=== PATIENT | female | born 1965 | race American Indian/Alaskan Native ===

== ENCOUNTER 2016-04-28 15:08 | Outpatient (CLI) | payer OTHER | END 2016-04-28 15:09 | disposition home or self-care (01) | LOC: LABHHL 15:08 → LAB 15:08 | PROVIDERS: ATTEND Surgery | DX: N60.01 Solitary cyst of right breast (principal) | CPT/HCPCS: 88112 ==

== ENCOUNTER 2018-04-13 10:17 | Emergency (ER) | payer OTHER, SELFPAY ==
--- NOTE | 2018-04-13 11:46 | Emergency Department Report ---
ED General Adult HPI - General Chief complaint: Medical Clearance Stated complaint: SENT BY /TO CHECK LUNGS Time Seen by Provider: 04/13/18 11:29 Source: patient, RN notes reviewed, old records reviewed Mode of arrival: Ambulatory Limitations: No Limitations - History of Present Illness Initial comments: This is a 53-year-old female. The patient has a medical history of cigar consumption. The patient is sent to the emergency room by her anesthesiologist, Dr. Yeung, for "medical clearance." Dr. Yeung called this provider prior to sending the patient to the emergency room. The patient is scheduled to have elective outpatient hysterectomy, and apparently has been having issues with high blood pressure, and having issues with insurance, and has been having difficulty with outpatient health maintenance. The patient has been apparently discussed with case management, who offered the option of evaluation in the emergency room. The phone conversation with that Dr. Yeung had with this provider indicated that she did not feel that the patient was acutely medically decompensated. From a symptom perspective, the patient has intermittent cough, but does not feel short of breath, denies headache, neck pain, chest pain, has mild lower abdominal discomfort which is chronic, nothing new, worsening or different, but denies other symptoms. She had outpatient screening laboratory studies sent earlier on today, which were essentially unremarkable. The patient has not followed up with a primary care doctor in a few years. She does not have a formal diagnosis of hypertension that she is aware of. Severity scale (0 -10): 0 Associated Symptoms: cough - Related Data Home Medications Medication Instructions Recorded Confirmed Last Taken No Known Home Medications [No 04/12/18 04/12/18 Unknown Reported Home Medications] Allergies Allergy/AdvReac Type Severity Reaction Status Date / Time No Known Allergies Allergy Unverified 04/12/18 16:47 ED Review of Systems ROS: Stated complaint: SENT BY /TO CHECK LUNGS Other details as noted in HPI Constitutional: denies: fever Eyes: denies: eye discharge ENT: congestion Respiratory: cough Cardiovascular: denies: chest pain Gastrointestinal: denies: nausea, vomiting Genitourinary: denies: dysuria Musculoskeletal: denies: back pain Skin: denies: lesions Neurological: denies: weakness ED Past Medical Hx - Past Medical History Hx Hypertension: Yes (Not taking any treatment) Hx GERD: Yes Hx Arthritis: Yes (Fingers, legs, back) - Surgical History Past Surgical History?: Yes Hx Cholecystectomy: Yes Additional Surgical History: TUBAL /HTENDON SURG ON FINGER - Social History Smoking Status: Current Every Day Smoker Substance Use Type: Alcohol - Medications Home Medications: Home Medications Medication Instructions Recorded Confirmed Last Taken Type No Known Home Medications [No 04/12/18 04/12/18 Unknown History Reported Home Medications] ED Physical Exam - General Limitations: No Limitations General appearance: alert, in no apparent distress - Head Head exam: Present: atraumatic, normocephalic - Eye Eye exam: Present: normal appearance, EOMI. Absent: nystagmus - ENT ENT exam: Present: normal exam, normal orophraynx, mucous membranes moist, normal external ear exam - Neck Neck exam: Present: normal inspection, full ROM. Absent: tenderness, meningismus - Respiratory Respiratory exam: Present: normal lung sounds bilaterally. Absent: respiratory distress - Cardiovascular Cardiovascular Exam: Present: regular rate, normal rhythm, normal heart sounds. Absent: bradycardia, tachycardia, irregular rhythm, systolic murmur, diastolic murmur, rubs, gallop - GI/Abdominal GI/Abdominal exam: Present: soft. Absent: distended, tenderness, guarding, rebound, rigid, pulsatile mass - Extremities Exam Extremities exam: Present: normal inspection, full ROM, other (2+ pulses noted in the bilateral upper, lower extremities. Compartments soft. No long bony tenderness. The pelvis is stable.). Absent: joint swelling, calf tenderness - Back Exam Back exam: Present: normal inspection, full ROM. Absent: tenderness, CVA tenderness (R), paraspinal tenderness, vertebral tenderness - Neurological Exam Neurological exam: Present: alert, oriented X3, CN II-XII intact, normal gait, other (Extraocular movements intact. Tongue midline. No facial droop. Facial sensation intact to light touch in the V1, V2, V3 distribution bilaterally. 5 and 5 strength in 4 extremities.. Sensation is intact to light touch in 4 extremities.). Absent: motor sensory deficit - Psychiatric Psychiatric exam: Present: normal affect, normal mood - Skin Skin exam: Present: warm, dry, intact, normal color. Absent: rash ED Course Vital Signs 04/13/18 10:48 Temperature 97.7 F Pulse Rate 67 Respiratory 18 Rate Blood Pressure 190/82 O2 Sat by Pulse 99 Oximetry ED Medical Decision Making - Lab Data Vital Signs 04/13/18 10:48 Temperature 97.7 F Pulse Rate 67 Respiratory 18 Rate Blood Pressure 190/82 O2 Sat by Pulse 99 Oximetry Laboratory studies are reviewed. - Medical Decision Making Differential diagnosis, including without limited to: General medical evaluation, medical screening examination, history of tobacco consumption, elevated blood pressure Assessment and plan: 53-year-old female with probable diagnosis of hypertension, who does not have an acute medical decompensation. The patient is afebrile, with reassuring vital signs, and in no acute distress. The patient is saturating at 100% on room air, with a resting heart rate in the 60s. Lung sounds clear to auscultation, and on my examination, does not have any significant cardiac findings, and has clear lungs to auscultation. X-ray of the chest is unremarkable. I had an extensive discussion with the patient regarding need for outpatient follow-up. The patient was counseled to lose weight, discontinue cigar and tobacco consumption, to participate in physical activities as tolerated, and to modify diet and lifestyle. The patient was counseled that the first line treatment for obesity, elevated blood pressure, hypertension specifically diet and left some modification, and that this typically requires 2-3 months. The patient verbalized understanding to this. The patient was also referred to the [place] [employer] webpage for information as to how to tell her and modify her diet. a case management consult was ordered, and they can follow the patient as an outpatient. This patient does not appear to have an emergent medical condition at this time, and she is medically suitable to follow-up. Her elevated blood pressure is reviewed and appreciated, please reference the [employer] clinical policy on hypertension which is not acutely decompensated. Critical care attestation.: If time is entered above; I have spent that time in minutes in the direct care of this critically ill patient, excluding procedure time. ED Disposition Clinical Impression: Encounter for medical screening examination, Elevated blood pressure reading Disposition: DC-01 TO HOME OR SELFCARE Is pt being admited?: No Does the pt Need Aspirin: No Condition: Stable Instructions: Hypertension (ED), Heart Healthy Diet (ED) Additional Instructions: As we discussed, the patient does not appear to have an emergent medical condition at this time. I recommend that the patient lose weight as tolerated, participate in physical activities as tolerated, and modified diet and decrease consumption of carbohydrates, sugars, fatty foods, and foods high in salt content. Please reference the [place] [employer] website for further recommendations The patient should follow-up with a primary care doctor within 4-6 weeks for routine health maintenance. Please note that the patient was noted to have hypertension, elevated blood pressure. This should be checked up by primary care doctor as recommended. Long-term complications of hypertension and elevated blood pressure includes stroke, heart attack, disability, paralysis, loss of quality of life. Please return to the emergency room right away with new, worsening or different symptoms. Referrals: [facility] [Provider Group] - 3-5 Days [facility] [Provider Group] - 3-5 Days
--- NOTE | 2018-04-13 12:13 | XRay Report ---
CHEST 2 VIEWS INDICATION: Cough. COMPARISON: None similar at this institution. FINDINGS: PA and lateral chest radiographs demonstrate normal cardiomediastinal silhouette. Clear lungs. Right hemidiaphragm minimally higher than the left. Right upper quadrant presumed cholecystectomy clips. CONCLUSION: No acute chest process, as described. Thank you for the opportunity to participate in this patient's care.
[2018-04-13 12:35] VITALS: BP 181/85
== END 2018-04-13 12:34 | disposition home or self-care (01) ==
LOC: ED 10:17
DX: I10 Essential (primary) hypertension (principal); K21.9 Gastro-esophageal reflux disease without esophagitis; F17.200 Nicotine dependence, unspecified, uncomplicated; M79.645 Pain in left finger(s); M79.644 Pain in right finger(s); M79.605 Pain in left leg; M79.604 Pain in right leg; M54.9 Dorsalgia, unspecified; Z90.49 Acquired absence of other specified parts of digestive tract; Z98.51 Tubal ligation status
CPT/HCPCS: 71046

== ENCOUNTER 2018-04-17 06:54 | Inpatient (IN) | payer SELFPAY ==
[2018-04-13 10:14] LABS: Basophils % (Auto) 0.3 % (0.0-1.8); Eosinophils # (Auto) 0.1 K/mm3 (0.0-0.4); Eosinophils % (Auto) 1.1 % (0.0-4.3); Hemoglobin 12.7 gm/dl (10.1-14.3); Lymphocytes # (Auto) 1.7 K/mm3 (1.2-5.4); Lymphocytes % (Auto) 30.2 % (13.4-35.0); Mean Corpuscular HGB Conc 33 % (30-34); Mean Corpuscular Volume 95 fl (79-97); Monocytes # (Auto) 0.3 K/mm3 (0.0-0.8); Monocytes % (Auto) 5.9 % (0.0-7.3); Platelet Count 223 K/mm3 (140-440); Red Blood Count 3.99 M/mm3 (3.65-5.03); Red Cell Distribution Width 14.7 % (13.2-15.2)
[2018-04-13 10:21] LABS: BUN/Creatinine Ratio 24; Blood Urea Nitrogen 12 mg/dL (7-17); Calcium 9.1 mg/dL (8.4-10.2); Hemolysis Index 8
--- NOTE | 2018-04-13 12:00 | Anesthesia Consultation ---
Anesthesia Consult and Med Hx Date of service: 04/13/18 - Airway Anesthetic Teeth Evaluation: Good ROM Head & Neck: Adequate Mental/Hyoid Distance: Adequate Mallampati Class: Class II Intubation Access Assessment: Probably Good - Pulmonary Exam CTA: Yes - Cardiac Exam Cardiac Exam: RRR - Pre-Operative Health Status ASA Pre-Surgery Classification: ASA3 Proposed Anesthetic Plan: General Nerve Block: TAP block - Pulmonary Hx Smoking: Yes (1/2 PPD x 40yrs) Hx Respiratory Symptoms: Yes (chronic productive cough) SOB: No Home Oxygen Therapy: No Hx Sleep Apnea: No - Cardiovascular System Hx Hypertension: Yes (noncompliant with antihypertensives) Hx Heart Attack/AMI: No Hx Percutaneous Transluminal Coronary Angioplasty (PTCA): No Hx Cardia Arrhythmia: No - Central Nervous System Hx Seizures: No CVA: No - Gastrointestinal Hx Gastroesophageal Reflux Disease: No - Endocrine Hx Renal Disease: No Hx Liver Disease: No Hx Insulin Dependent Diabetes: No Hx Non-Insulin Dependent Diabetes: No Hx Thyroid Disease: No - Other Systems Hx Substance Use: Yes (Prior cocaine use, clean x7yrs. Daily marijuana smoker.) Hx Obesity: No - Additional Comments Anesthesia Medical History Comments: No hx anesthetic complications. In pre- assessment, patient found to have BP 170s/60s with diffuse wheezing and course breath sounds on exam. Patient is aware of HTN diagnosis but has been noncompliant with previous treatment and does not currently follow with a PCP. Discussed with patient the anesthetic risks of GA in the context of poorly controlled HTN and possible lung disease including severe hyper/hypotension, difficulty with oxygenation/ventilation/extubation leading to prolonged intubation and ICU admission, perioperative MA, CVA, or . Patient was concerned about surgical delay since she has taken time off from 2 jobs. Discussed with case management whom recommended sending patient to ED for evaluation. Also discussed with ED clinic charge nurse and MD. Patient has opted to present to ED today. I have explained to the patient that if her blood pressure is significantly elevated DOS or lung exam is unchanged, her surgery may be postponed or canceled pending optimization of chronic conditions.
[2018-04-17] MEDS ORDERED: LACTATED RINGERS 1,000 ML IV SCH (07:14)
[2018-04-17] MEDS ORDERED: SUBLIMAZE IV NR (07:28)
[2018-04-17] MEDS ORDERED: PROVENTIL IH NR (07:30)
--- NOTE | 2018-04-17 07:50 | Anesthesia Day of Surgery ---
Anesthesia Day of Surgery - Day of Surgery Patient Examined: Yes Patient H&P Reviewed: Yes Patient is NPO: Yes
--- NOTE | 2018-04-17 07:53 | History and Physical Report ---
History of Present Illness Date of examination: 04/17/18 Date of admission: 04/17/18 06:54 Chief complaint: Symptomatic uterine fibroids History of present illness: Pt is a 53yo BF LMP 2 years ago presents for surgical evaluation and treatment of symptomatic uterine fibroids. A pelvic ultrasound showed the uterus to measure 15 x 12 x 9 cm with 5 fibroids and endometrial biopsy was benign showing weakly proliferative endometrium with endometrial polyp. She now presents for a total abdominal hysterectomy with bilateral salpingo- oophorectomy. Past History Past Medical History: no pertinent history Past Surgical History: no surgical history [facility] History: fibroids Social history: no significant social history Medications and Allergies Allergies Allergy/AdvReac Type Severity Reaction Status Date / Time No Known Allergies Allergy Unverified 04/12/18 16:47 Home Medications Medication Instructions Recorded Confirmed Last Taken Type No Known Home Medications [No 04/12/18 04/12/18 Unknown History Reported Home Medications] Active Meds: Active Medications Albuterol (Proventil) 2.5 mg IH PREOP NR Stop: 04/17/18 16:00 Celecoxib (Celebrex) 200 mg PO PREOP NR Stop: 04/17/18 16:00 Fentanyl (Sublimaze) 100 mcg IV ONCE NR Stop: 04/17/18 16:00 Gabapentin (Neurontin) 300 mg PO PREOP NR Stop: 04/17/18 16:00 Lactated Ringer's (Lactated Ringers) 1,000 mls @ 100 mls/hr IV DIRECT SEVERINO Midazolam HCl (Versed) 2 mg IV PREOP NR Stop: 04/17/18 23:59 Review of Systems All systems: negative - Vital Signs Vital signs: Vital Signs Temp Pulse Resp BP Pulse Ox 98.5 F 70 20 170/70 98 04/13/18 09:30 04/13/18 09:30 04/13/18 09:30 04/13/18 09:30 04/13/18 09:30 Temp Pulse Resp BP Pulse Ox 98.5 F 70 20 170/70 98 04/13/18 09:30 04/13/18 09:30 04/13/18 09:30 04/13/18 09:30 04/13/18 09:30 - Physical Exam Breasts: Positive: deferred Cardiovascular: Regular rate Lungs: Positive: Clear to auscultation Abdomen: Positive: normal appearance Genitourinary (Female): Positive: normal external genitalia Vagina: Positive: normal moisture Uterus: Positive: enlarged Anus/Rectum: Positive: normal perianal skin Extremities: Positive: normal Results Result Diagrams: 04/13/18 09:25 04/13/18 09:25 All other labs normal. Ultrasound: report reviewed Assessment and Plan - Patient Problems (1) Uterine fibroid Onset Date: 04/17/18 Current Visit: Yes Status: Acute Qualifiers: Uterine leiomyoma location: intramural, submucous, and subserous Qualified Code(s): D25.1 - Intramural leiomyoma of uterus; D25.0 - Submucous leiomyoma of uterus; D25.2 - Subserosal leiomyoma of uterus Plan to address problem: A: Symptomatic uterine fibroids Postmenopausal bleeding P: Will admit for a Total Abdominal Hysterectomy with Bilateral Salpingo- Oophorectomy (2) Post-menopausal bleeding Onset Date: 04/17/18 Current Visit: Yes Status: Acute
[2018-04-17] MEDS ORDERED: MARCAINE 0.25% INFILTRATI ONE (07:58)
[2018-04-17] MEDS ORDERED: ANCEF/STERILE WATER 2 GM/20 ML 2 GM/20 ML SYRINGE IV SCH (08:00)
[2018-04-17] MEDS ORDERED: NEURONTIN PO NR (08:00)
[2018-04-17] MEDS: VERSED IV NR ×2 (08:18→09:15)
[2018-04-17] MEDS ORDERED: SUBLIMAZE ONE ×2 (08:44→11:40)
[2018-04-17] MEDS ORDERED: QUELICIN ONE (08:44)
[2018-04-17] MEDS ORDERED: XYLOCAINE MPF 2% ONE (08:44)
[2018-04-17] MEDS ORDERED: DIPRIVAN 10 MG/ML IV ONE (08:44)
[2018-04-17] MEDS ORDERED: ZOFRAN ONE (08:45)
[2018-04-17] MEDS ORDERED: DECADRON ONE (08:45)
[2018-04-17] MEDS ORDERED: NACL 0.9% IR ONE (09:32)
[2018-04-17] MEDS ORDERED: PROAIR IH ONE (09:47)
--- NOTE | 2018-04-17 11:26 | Post Anesthesia Evaluation ---
- Post Anesthesia Evaluation Patient Participated: Yes Airway Patent: Yes Stable Respiratory Function: Yes Nausea/Vomiting: No Temp > 96.8F: Yes Pain Manageable: Yes Adequeate Hydration: Yes Anesthesia Complications: No Block Receding Appropriately: No (Intended for post-op analgesia) Patient on Ventilator: No
[2018-04-17] MEDS ORDERED: ZOFRAN IV PRN (11:35)
[2018-04-17] MEDS ORDERED: MILK OF MAGNESIA PO PRN (11:35)
[2018-04-17] MEDS ORDERED: TYLENOL PO PRN (11:35)
--- NOTE | 2018-04-17 11:58 | Operative Report ---
Operative Report Operative Report: Date of procedure: 04/17/2018 Pre-operative diagnosis: 1. Symptomatic uterine fibroids 2. Postmenopausal b leeding Post-operative diagnosis: Same Procedure name(s): 1. Total abdominal hysterectomy 2. Bilateral salpingo- oophorectomy Surgeon: Giorgi Latham MD Tractor Operator Battery: None Anesthesia: CHARO Block followed by general endotracheal intubation EBL: 550 mL Findings: A 16-18 week size multiple myomatous uterus with tubes showed evidence of previous tubal ligation bilaterally and atrophic ovaries bilaterally. Procedure: After the patient was first correctly identified and after general anesthesia was administered she was prepped and draped in usual in the usual sterile fashion and placed in the dorsolithotomy position. The skin knife was used to make a transverse skin incision. The incision was extended down to the layer of the fascia which was nicked in the midline and extended laterally using Bovie cautery. The rectus muscles were dissected off the rectus fascia both superiorly and inferiorly, the rectus bellies in the midline and the peritoneum was entered under direct visualization. Exploration of the pelvic organs found the uterus to be enlarged approximately 16-18 week size with large lateral fibroids and the tubes showed evidence of previous tubal ligation bila terally and ovaries were atrophic bilaterally. Next the bowels were packed back and the right round ligament was clamped, cauterized and cut using the Enseal device. The right infundibulopelvic ligament was clamped, cauterized and cut, thus freeing the right ovary from the right pelvic sidewall. Same procedure was performed on the left. The left round ligament was clamped, cauterized and cut using the Enseal device, and the left infundibulopelvic ligament was clamped, cauterized and cut thus freeing the left ovary from the left pelvic sidewall. The uterine vessels were difficult to approach due to the lateral fibroids, but were eventually skeletonized bilaterally, and the bladder flap was taken down anteriorly. The uterine vessels were then clamped, cauterized and cut bilaterally, and the cardinal ligaments were sequentially clamped, cauterized and cut down to the level of the uterosacral ligaments. The cervix was then amputated from the vaginal cuff and the specimen was handed off the surgical field. The vaginal cuff was then made hemostatic using several sutures of 0 Vicryl suture in a [id number] configuration. After excellent hemostasis was assured copious amounts of irrigation was then performed. The Tisseel sealant was then sprayed across the vaginal cuff and the superior pedicles bilaterally and after excellent hemostasis was assured the procedure was consi dered complete. All instruments removed from abdomen, and the peritoneum was closed using 0 Vicryl suture in a running interlocking fashion and the rectus muscles were also loosely re-approximated using 0 Vicryl suture in a [id number] configuration. The fascia was then re-approximated using #1 Vicryl suture in a running interlocking fashion, the subcutaneous layer made hemostatic using Bovie cautery and the skin edges re-approximated using 4-0 Vicryl suture in a sub-cuticular fashion. Patient tolerated the procedure well was transported to recovery room in stable condition.
[2018-04-17] MEDS ORDERED: CLIMARA TD SCH (12:00)
[2018-04-17] MEDS ORDERED: NORMODYNE IV ONE ×2 (12:05→20:31)
[2018-04-17] MEDS: DILAUDID IV PRN ×2 (12:13→12:54)
[2018-04-17] MEDS ORDERED: NORMODYNE IV NR (12:25)
[2018-04-17] MEDS ORDERED: CALAN IV NR (13:00)
[2018-04-17] MEDS: TORADOL IV SCH ×2 (13:24→19:15)
[2018-04-17] MEDS: D5LR 1,000 ML IV SCH (16:00)
[2018-04-17] MEDS: PERCOCET 5/325 PO PRN (16:39)
[2018-04-17] MEDS: ANCEF/NS 1 GM/50 ML 1 GM/50 ML BAG IV SCH (19:21)
[2018-04-17] MEDS: NORMODYNE PO SCH (21:57)
[2018-04-17] MEDS: COLACE PO SCH (21:59)
[2018-04-18] MEDS: TORADOL IV SCH ×3 (00:11→11:48)
[2018-04-18] MEDS: D5LR 1,000 ML IV SCH (01:31)
[2018-04-18] MEDS: PERCOCET 5/325 PO PRN ×3 (02:37→22:13)
[2018-04-18] MEDS: ANCEF/NS 1 GM/50 ML 1 GM/50 ML BAG IV SCH (03:24)
[2018-04-18 07:26] LABS: BUN/Creatinine Ratio 14; Blood Urea Nitrogen 7 mg/dL (7-17); Calcium 8.3 mg/dL (8.4-10.2)
[2018-04-18 08:01] LABS: Hematocrit 31.5 % (30.3-42.9); Hemoglobin 10.4 gm/dl (10.1-14.3)
--- NOTE | 2018-04-18 09:23 | Progress Note ---
Assessment and Plan - Patient Problems (1) Uterine fibroid Onset Date: 04/17/18 Current Visit: Yes Status: Resolved Qualifiers: Uterine leiomyoma location: intramural, submucous, and subserous Qualified Code(s): D25.1 - Intramural leiomyoma of uterus; D25.0 - Submucous leiomyoma of uterus; D25.2 - Subserosal leiomyoma of uterus (2) Post-menopausal bleeding Onset Date: 04/17/18 Current Visit: Yes Status: Resolved (3) S/P SYD-BSO (total abdominal hysterectomy and bilateral salpingo- oophorectomy) Onset Date: 04/18/18 Current Visit: Yes Status: Resolved Plan to address problem: A: S/P SYD/BSO - POD #1 Doing well Asymptomatic anemia - stable P: Continue RPOC Anticipate discharge in 24-48hrs Subjective - Subjective Date of service: 04/18/18 Principal diagnosis: s/p SYD/BSO - POD #1 Interval history: Pt is feeling well without complaints except hot flashes. She is tolerating a liquid diet without nausea or vomiting, ambulating and voiding without difficulty. Patient reports: appetite normal, voiding normally, pain well controlled, ambulating normally, no dizzy ambulation, no flatus, no nauseated Objective - Vital Signs Latest vital signs: Vital Signs Temp Pulse Resp BP BP Pulse Ox 04/18/18 08:23 98.3 F 69 18 164/62 98 04/18/18 06:00 18 04/18/18 03:54 137/64 04/18/18 02:37 20 04/18/18 00:11 20 04/18/18 00:00 98.6 F 81 18 162/74 99 04/17/18 23:40 162/74 04/17/18 23:00 76 160/70 04/17/18 21:57 78 177/82 177/82 04/17/18 21:16 75 170/81 04/17/18 21:03 80 17 164/80 96 04/17/18 20:57 83 20 161/71 96 04/17/18 20:53 78 18 161/75 98 04/17/18 20:43 81 20 181/79 181/79 97 04/17/18 19:58 191/74 04/17/18 17:21 98.6 F 80 20 194/94 96 04/17/18 15:50 98.0 F 78 20 145/89 97 04/17/18 14:14 68 24 174/75 99 04/17/18 13:45 97.6 F 75 16 167/79 96 04/17/18 13:44 69 180/78 04/17/18 13:30 68 16 166/74 99 04/17/18 13:24 17 04/17/18 13:00 70 16 164/73 97 04/17/18 12:54 17 04/17/18 12:45 62 15 180/78 98 04/17/18 12:43 16 04/17/18 12:30 63 17 161/75 100 04/17/18 12:27 63 178/85 04/17/18 12:15 60 17 176/84 100 04/17/18 12:13 12 04/17/18 12:10 71 17 172/133 100 04/17/18 12:09 70 222/82 04/17/18 12:05 69 19 207/88 98 04/17/18 12:00 72 21 222/82 99 04/17/18 11:55 71 21 215/95 100 04/17/18 11:51 96.6 F L 78 20 194/89 99 Intake and Output 04/17/18 04/18/18 04/18/18 22:59 06:59 14:59 Intake Total 50 1000 120 Output Total 200 300 Balance -150 700 120 Intake: IV 50 1000 ANCEF/NS 1 GM/50 ML 1 gm 50 In 50 ml @ 100 mls/hr IV Q8H SEVERINO Rx#:[id number] D5lr 1,000 ml @ 125 mls/ 1000 hr IV DIRECT SEVERINO Rx#: [id number] Intake, Free Water 120 Output: Urine 200 300 Indwelling Catheter 200 300 Other: Total, Output Amount 200 300 Voiding Method Toilet # Voids 1 Indwelling Catheter 1 Void 1 Weight 72.575 kg - Exam Breasts: Present: deferred Abdomen: Present: normal appearance, soft, normal bowel sounds Extremities: Present: normal Incision: Present: normal, dry, intact, dressed - Labs Labs: Abnormal lab results 04/18/18 Range/Units 06:00 Potassium 3.5 L (3.6-5.0) mmol/L Creatinine 0.5 L (0.7-1.2) mg/dL Glucose 139 H (65-100) mg/dL Calcium 8.3 L (8.4-10.2) mg/dL Laboratory Tests 04/13/18 04/13/18 04/17/18 09:25 09:25 08:00 WBC 5.5 RBC 3.99 Hgb 12.7 Hct 38.0 MCV 95 MCH 32 MCHC 33 RDW 14.7 Plt Count 223 Lymph % (Auto) 30.2 [place] % (Auto) 5.9 Eos % (Auto) 1.1 Baso % (Auto) 0.3 Lymph # 1.7 [place] # 0.3 Eos # 0.1 Baso # 0.0 Seg Neutrophils % 62.5 Seg Neutrophils # 3.4 Sodium 144 Potassium 4.3 Chloride 105.2 Carbon Dioxide 29 Anion Gap 14 BUN 12 Creatinine 0.5 L Estimated GFR > 60 BUN/Creatinine Ratio 24 Glucose 92 Calcium 9.1 Blood Type A POSITIVE Antibody Screen Negative 04/18/18 04/18/18 06:00 06:00 WBC RBC Hgb 10.4 Hct 31.5 MCV MCH MCHC RDW Plt Count Lymph % (Auto) [place] % (Auto) Eos % (Auto) Baso % (Auto) Lymph # [place] # Eos # Baso # Seg Neutrophils % Seg Neutrophils # Sodium 137 Potassium 3.5 L Chloride 99.7 Carbon Dioxide 26 Anion Gap 15 BUN 7 Creatinine 0.5 L Estimated GFR > 60 BUN/Creatinine Ratio 14 Glucose 139 H Calcium 8.3 L Blood Type Antibody Screen
[2018-04-18] MEDS: NORMODYNE PO SCH ×2 (09:58→22:12)
[2018-04-18] MEDS: COLACE PO SCH ×2 (09:58→22:13)
[2018-04-18] MEDS: NORCO 5/325 PO PRN (09:59)
[2018-04-19] MEDS: TORADOL IV SCH ×2 (01:40→05:56)
[2018-04-19] MEDS: COLACE PO SCH (09:29)
[2018-04-19] MEDS: NORMODYNE PO SCH (09:29)
--- NOTE | 2018-04-19 12:36 | Progress Note ---
Assessment and Plan - Patient Problems (1) Uterine fibroid Onset Date: 04/17/18 Current Visit: Yes Status: Resolved Qualifiers: Uterine leiomyoma location: intramural, submucous, and subserous Qualified Code(s): D25.1 - Intramural leiomyoma of uterus; D25.0 - Submucous leiomyoma of uterus; D25.2 - Subserosal leiomyoma of uterus (2) Post-menopausal bleeding Onset Date: 04/17/18 Current Visit: Yes Status: Resolved (3) S/P SYD-BSO (total abdominal hysterectomy and bilateral salpingo- oophorectomy) Onset Date: 04/18/18 Current Visit: Yes Status: Resolved Plan to address problem: A: S/P SYD/BSO - POD #2 Doing well Asymptomatic anemia - stable P: May go home today. Subjective - Subjective Date of service: 04/19/18 Principal diagnosis: s/p SYD/BSO - POD #2 Interval history: Pt is feeling well without complaints. She is tolerating a reg diet without nausea or vomiting, ambulating and voiding without difficulty. Patient reports: appetite normal, voiding normally, pain well controlled, flatus, ambulating normally, no dizzy ambulation, no nauseated Objective - Vital Signs Latest vital signs: Vital Signs Temp Pulse Pulse Resp BP BP Pulse Ox 04/19/18 09:29 170/76 04/19/18 08:07 98.0 F 73 20 170/76 95 04/19/18 05:56 20 04/19/18 04:40 98.0 F 75 20 157/68 95 04/19/18 00:00 98.2 F 76 18 108/44 93 04/18/18 22:13 18 04/18/18 22:12 66 140/82 04/18/18 22:09 140/82 04/18/18 20:51 65 130/68 99 04/18/18 20:15 62 04/18/18 20:00 98.2 F 64 18 130/68 100 04/18/18 16:18 97.7 F 64 18 141/64 99 Intake and Output 04/18/18 04/19/18 04/19/18 22:59 06:59 14:59 Intake Total 1440 240 120 Balance 1440 240 120 Intake: Oral 960 240 120 Intake, Free Water 480 Other: Total, Intake Amount 240 240 120 Voiding Method Toilet # Voids Indwelling Catheter 2 Void 2 1 1 - Exam Abdomen: Present: normal appearance, soft Incision: Present: normal, dry, intact
[2018-04-19] MEDS: NORCO 5/325 PO PRN (12:45)
[2018-04-19 12:55] VITALS: BP 166/70
--- NOTE | 2018-04-19 13:23 | Discharge Summary ---
Providers - Providers Date of Admission: 04/17/18 06:54 Date of discharge: 04/19/18 Attending physician: MAGDI DAY [facility] Reason for admission: other (Symptomatic uterine fibroids; Post menopausal bleeding) Procedure: other (Total Abdominal Hysterectomy with Bilateral SalpingoOophorectomy) Laceration: none Incision: normal, dry, intact Other procedures: none complications: none Discharge diagnosis: other (s/p SYD/BSO) Hospital course: Pt is a 53yo BF LMP 2 years ago who presented for surgical evaluation and treatment of symptomatic uterine fibroids. A pelvic ultrasound showed the uterus to measure 15 x 12 x 9 cm with 5 fibroids and endometrial biopsy was benign showing weakly proliferative endometrium with endometrial polyp. She underwent an uncomplicated Total Abdominal Hysterectomy with Bilateral salpingo- oophorectomy, and by POD #2 she was tolerating a reg diet without nausea or vomiting, ambulating and voiding without difficulty, and therefore will be discharged to home today. Her BP was a little elevated, so she will be discharged on Labetolol 200mg BID and follow up in the office in 1 week for BP check. Condition at discharge: Good Disposition: DC-01 TO HOME OR SELFCARE - Discharge Diagnoses (1) Uterine fibroid Status: Resolved Qualifiers: Uterine leiomyoma location: intramural, submucous, and subserous Qualified Code(s): D25.1 - Intramural leiomyoma of uterus; D25.0 - Submucous leiomyoma of uterus; D25.2 - Subserosal leiomyoma of uterus (2) Post-menopausal bleeding Status: Resolved (3) S/P SYD-BSO (total abdominal hysterectomy and bilateral salpingo- oophorectomy) Status: Resolved Plan - Discharge Medications Prescriptions: Estradiol [[place]] 0.1 mg TD 2XW #4 patch Ibuprofen [Motrin] 800 mg PO Q8HR PRN #30 tablet PRN Reason: Pain, Mild (1-3) HYDROcodone/APAP 5-325 [[place] 5-325 mg TAB] 1 each PO Q6HR PRN #30 tablet PRN Reason: Pain, Moderate (4-6) Labetalol [Normodyne TAB] 200 mg PO BID #60 tablet - Provider Discharge Summary Activity: routine, no sex for 6 weeks, no heavy lifting 4 weeks, no strenuous exercise Diet: routine Instructions: routine Additional instructions: [] Smoking cessation referral if applicable(refer to patient education folder for contact #) [] Refer to [facility] Booklet Call your doctor immediately for: * Fever > 100.5 * Heavy vaginal bleeding ( >1 pad per hour) * Severe persistent headache * Shortness of breath * Reddened, hot, painful area to leg or breast * Drainage or odor from incision. * Keep incision clean and dry at all times and follow doctor's instructions regarding bathing/showering Follow up in office in 1 week for BP check - Follow up plan Follow up: [facility] GAUTAM MD [Primary Care Provider] - 7 Days MAGDI DAY MD [Staff Physician] - 7 Days
== END 2018-04-19 15:03 | disposition home or self-care (01) | DRG 743 ==
LOC: 3A 06:54 → OB 11:48
PROVIDERS: ADMIT Obstetrics & Gynecology; ATTEND Obstetrics & Gynecology
PROC: 0UT90ZZ Resection of Uterus, Open Approach (ICD-10-PCS; principal; 2018-04-17)
PROC: 0UT70ZZ Resection of Bilateral Fallopian Tubes, Open Approach (ICD-10-PCS; 2018-04-17)
PROC: 0UT20ZZ Resection of Bilateral Ovaries, Open Approach (ICD-10-PCS; 2018-04-17)
DX: D25.1 Intramural leiomyoma of uterus (principal); N95.0 Postmenopausal bleeding; F17.200 Nicotine dependence, unspecified, uncomplicated; I10 Essential (primary) hypertension; D64.9 Anemia, unspecified
CPT/HCPCS: 36415; 64450; 80048; 85014; 85018; 85025; 86850; 86900; 86901; 88307; G0378; C9250; J0330; J0690; J1100; J1170; J1885; J2250; J2405; J2704; J3010; J7120; J7121